=== PATIENT | female | born 1990 | race Caucasian/White ===

== ENCOUNTER 2016-12-03 11:35 | Inpatient (IN) ==
[2016-12-03] MEDS ORDERED: D5 1/2 NS 1,000 ML ONE (12:20)
[2016-12-03] MEDS ORDERED: D5 1/2 NS + KCL 20 MEQ 1,000 ML IV ONE (12:20)
[2016-12-03] MEDS ORDERED: STERILE WATER INJ. INJ ONE (12:37)
[2016-12-03] MEDS ORDERED: GEODON IM ONE (12:37)
--- NOTE | 2016-12-03 12:39 | PROVIDER DOCUMENTATION ---
HPI-Psychological Disorder - General Source: patient, family (boyfriend) - History of Present Illness-Psych Onset/Duration: reports: unsure Timing: reports: still present Severity: reports: moderate Situational problems related to:: reports: other (pt's self body image) Psychiatric Complaints: reports: depressed. denies: angry, agitated, altered mental status, anxiety, confused, frustrated, hallucinating, hostile, homicidal thoughts, impaired concentration, ingestion, injury, insomnia, irritability, paranoid, , rapid pulse, restlessness, suicidal ideation, tremor Substance Use: reports: denies Previous psych related hospitalizations?: Yes ([facility] ) Patient arrived by:: private car Similar Symptoms Previously?: Yes Recently seen or treated by another doctor?: No <Elis Soto - Last Filed: 12/03/16 14:15> <David Walls - Last Filed: 12/03/16 15:43> - General Chief Complaint: Low Blood Sugar Stated Complaint: LOW BLOOD SUGAR/EATING DISORDER Time Seen by Provider: 12/03/16 12:13 - History of Present Illness-Psych Nature of Presenting Problem: Pt is 26 y/o F presents to the ED with boyfriend for low blood sugar. Pt states she is anorexic and bulimic. Pt's boyfriend states Pt has not ate in 4 days and refuses to eat or drink anything but water. Pt denies taking daily meds. Pt states she wants to weight 85 lbs because it will make her feel prettier. Pt's boyfriend states the anorexia and bulimia started around August of 2016 after Pt had gallbladder sx. Pt states has not slept in a long time. (Elis Soto) Review of Systems - Adult - REVIEW OF SYSTEMS - ADULT Constitutional: reports: no symptoms reported Eyes: reports: no symptoms reported Ears, Nose, Mouth & Throat: reports: no symptoms reported Cardiovascular: reports: no symptoms reported Respiratory: reports: no symptoms reported Gastrointestinal: reports: nausea, poor appetite, vomiting. denies: abdominal pain, diarrhea Genitourinary: reports: no symptoms reported Musculoskeletal: reports: no symptoms reported Integumentary: reports: no symptoms reported Neurological: reports: no symptoms reported Psychiatric: reports: no symptoms reported Endocrine: reports: no symptoms reported Hematologic/Lymphatic: reports: no symptoms reported Allergic/Immunologic: reports: no symptoms reported All Other Systems: Reviewed and Negative <Elis Soto - Last Filed: 12/03/16 14:15> Past History - Adult - PAST MEDICAL HISTORY-ADULT Review of Records: reports: Nursing Assessment Review, Medications Reviewed, Social history reviewed & non-contributory. Major Childhood Illnesses: reports: denies history Cardiovascular: reports: denies history Respiratory: reports: denies history Gastrointestinal: reports: denies history Obstetrical/Gynecological: reports: denies history Genitourinary: reports: denies history Musculoskeletal: reports: denies history Neurological: reports: denies history Endocrine/Immune: reports: denies history Other Conditions: reports: denies history - PRIOR SURGERIES/PROCEDURES Surgical/Procedure History: reports: reviewed, not pertinent - IMMUNIZATION STATUS Childhood Immunizations: See Nurse Assessment Flu Vaccine: See Nurse Assessment - FAMILY HISTORY Family History: reviewed, not pertinent - SOCIAL HISTORY Smoking: denies Substance Use: denies Living Situation: family <Elis Soto - Last Filed: 12/03/16 14:15> Physical Exam-Psych Focus - Physical Exam-Psych Initial Vital Signs Reviewed: Yes Appearance: appropriate appearance, appropriate insight, neat, no apparent distress, no memory impairment Neurological: alert, normal mood/affect, calm, rolled materials worker II-XII nml as tested, oriented x 3 Behavior/Eye Contact/Speech: cooperative, good eye contact, normal speech Thoughts/Hallucinations: normal thought pattern, no apparent hallucination HENMT: normocephalic/atraumatic, normal ENT inspection, TMs normal, pharynx normal, other (dry mucous membranes) Neck: non-tender, full range of motion, supple, normal inspection Respiratory: chest non-tender, lungs clear, normal breath sounds, no pleuratic chest pain, no respiratory distress, no accessory muscle use Cardiovascular: normal peripheral pulses, regular rate, rhythm, no edema, no gallop, no JVD, no murmur Abdominal Exam: normal bowel sounds, non tender, soft, no organomegaly, no pulsatile mass Lymphatic: no adenopathy Back Exam: normal inspection, no CVA tenderness, no vertebral tenderness Extremity: normal range of motion, non-tender, normal inspection, no pedal edema , no calf tenderness, normal capillary refill Integumentary: normal color, normal turgor, warm/dry <Charles,Elis - Last Filed: 12/03/16 14:15> Progress - XRAY 1 XRAY: Bilateral XRAY Study: Abdomen Impression: Normal XRAY Interpretation: negative exam <Elis Soto - Last Filed: 12/03/16 14:15> - REASSESSMENT Reassessment #1 Time Reassessed: 15:42 Status: unchanged (discussed admission to special unit, but will admit for tube feedings until unit found) <David Walls - Last Filed: 12/03/16 15:43> - PLAN OF CARE/RESULTS Progress/Plan/Lab Results: Orders Category Date Time Status ABDOMEN FLAT/UPRIGHT [RAD] Stat Exams 12/03/16 12:37 Ordered ACETAMINOPHEN [TDM] Stat Lab 12/03/16 12:35 Ordered ALCOHOL BLOOD Stat Lab 12/03/16 12:35 Ordered CBC WITH ELECTRONIC DIFF [HEME] Stat Lab 12/03/16 12:35 Ordered CMP [COMPREHENSIVE METABOLIC PANEL] [CHEM] Stat Lab 12/03/16 12:35 Ordered LIPASE [CHEM] Stat Lab 12/03/16 12:35 Ordered PT REQUESTED UDS Stat Lab 12/03/16 12:36 Ordered SALICYLATES [TDM] Stat Lab 12/03/16 12:35 Ordered UA NIMS W/REFLEX CULT [URINALYSIS] Stat Lab 12/03/16 12:16 Uncollected D5 1/2 Ns + KCl 20 Meq 1,000 ml Med 12/03/16 12:20 Active IV 125 mls/hr Dextrose 5%-0.45% NaCl Inj [D5 1/2 Ns] 1,000 ml Med 12/03/16 12:20 Discontinued .ROUTE As Directed Water, Sterile Inj [Sterile Water Inj] Med 12/03/16 12:37 Discontinued 1.2 ml INJ NOW ONE Ziprasidone [Geodon] Med 12/03/16 12:37 Discontinued 10 mg IM NOW ONE Vital Signs - 24 hr 12/03/16 12:06 Temperature 98.2 F Pulse Rate 76 Respiratory 16 Rate Blood Pressure 110/75 O2 Sat by Pulse 100 Oximetry Laboratory Tests 12/03/16 12/03/16 12:10 12:24 WBC 5.10 RBC 5.28 Hgb 15.2 Hct 46.3 MCV 87.7 MCH 28.8 MCHC 32.8 L RDW Std Deviation 14.1 Plt Count 257 MPV 11.0 H Neut % (Auto) 43.4 Lymph % (Auto) 47.5 [place] % (Auto) 6.9 Eos % (Auto) 1.4 Baso % (Auto) 0.8 Neut # (Auto) 2.22 Lymph # (Auto) 2.42 [place] # (Auto) 0.35 Eos # (Auto) 0.07 Baso # (Auto) 0.04 POC Glucose 40 L Laboratory Tests 12/03/16 12/03/16 12/03/16 12:10 12:24 12:24 WBC 5.10 RBC 5.28 Hgb 15.2 Hct 46.3 MCV 87.7 MCH 28.8 MCHC 32.8 L RDW Std Deviation 14.1 Plt Count 257 MPV 11.0 H Neut % (Auto) 43.4 Lymph % (Auto) 47.5 [place] % (Auto) 6.9 Eos % (Auto) 1.4 Baso % (Auto) 0.8 Neut # (Auto) 2.22 Lymph # (Auto) 2.42 [place] # (Auto) 0.35 Eos # (Auto) 0.07 Baso # (Auto) 0.04 Sodium 138 Potassium 4.3 Chloride 92 L Carbon Dioxide 20 L Anion Gap 26 BUN 8 Creatinine 0.9 Estimated GFR/1.73 m2 > 60 BUN/Creatinine Ratio 9 Glucose 52 L POC Glucose 40 L Calculated Osmolality 271 Calcium 10.3 H Total Bilirubin 0.88 AST 17 ALT 10 Alkaline Phosphatase 53 Total Protein 7.5 Albumin 5.4 H Globulin 2.1 Albumin/Globulin Ratio 2.6 Lipase 19 TSH Urine Source Urine Color Urine Turbidity Urine pH Ur Specific [place] Urine Protein Ur Glucose (Stick) Ur Ketones (Stick) Urine Blood Urine Nitrite Urine Bilirubin Urobilinogen Dipstick Urine Leukocytes Urine WBC (Auto) Urine RBC (Auto) U Epithel Cells (Auto) Urine Bacteria (Auto) Salicylates < 3.00 L Urine Opiates Screen Ur Oxycodone Screen Ur Methadone, Qual Acetaminophen < 1.2 L Ur Barbiturates Screen Ur Phencyclidine Scrn Ur Amphetamines Screen U Benzodiazepines Scrn Urine Cocaine Screen U Cannabinoids Screen Plasma/Serum Ethyl Alc 12/03/16 12/03/16 12/03/16 12:24 12:24 13:24 WBC RBC Hgb Hct MCV MCH MCHC RDW Std Deviation Plt Count MPV Neut % (Auto) Lymph % (Auto) [place] % (Auto) Eos % (Auto) Baso % (Auto) Neut # (Auto) Lymph # (Auto) [place] # (Auto) Eos # (Auto) Baso # (Auto) Sodium Potassium Chloride Carbon Dioxide Anion Gap BUN Creatinine Estimated GFR/1.73 m2 BUN/Creatinine Ratio Glucose POC Glucose Calculated Osmolality Calcium Total Bilirubin AST ALT Alkaline Phosphatase Total Protein Albumin Globulin Albumin/Globulin Ratio Lipase TSH 3.48 Urine Source CLEAN CATCH Urine Color YELLOW Urine Turbidity CLEAR Urine pH 5.5 Ur Specific [place] 1.005 Urine Protein NEGATIVE Ur Glucose (Stick) NEGATIVE Ur Ketones (Stick) 40 A Urine Blood NEGATIVE Urine Nitrite NEGATIVE Urine Bilirubin NEGATIVE Urobilinogen Dipstick NORMAL Urine Leukocytes NEGATIVE Urine WBC (Auto) <10 Urine RBC (Auto) <10 U Epithel Cells (Auto) <10 Urine Bacteria (Auto) 1+ Salicylates Urine Opiates Screen Ur Oxycodone Screen Ur Methadone, Qual Acetaminophen Ur Barbiturates Screen Ur Phencyclidine Scrn Ur Amphetamines Screen U Benzodiazepines Scrn Urine Cocaine Screen U Cannabinoids Screen Plasma/Serum Ethyl Alc 12/03/16 13:24 WBC RBC Hgb Hct MCV MCH MCHC RDW Std Deviation Plt Count MPV Neut % (Auto) Lymph % (Auto) [place] % (Auto) Eos % (Auto) Baso % (Auto) Neut # (Auto) Lymph # (Auto) [place] # (Auto) Eos # (Auto) Baso # (Auto) Sodium Potassium Chloride Carbon Dioxide Anion Gap BUN Creatinine Estimated GFR/1.73 m2 BUN/Creatinine Ratio Glucose POC Glucose Calculated Osmolality Calcium Total Bilirubin AST ALT Alkaline Phosphatase Total Protein Albumin Globulin Albumin/Globulin Ratio Lipase TSH Urine Source Urine Color Urine Turbidity Urine pH Ur Specific [place] Urine Protein Ur Glucose (Stick) Ur Ketones (Stick) Urine Blood Urine Nitrite Urine Bilirubin Urobilinogen Dipstick Urine Leukocytes Urine WBC (Auto) Urine RBC (Auto) U Epithel Cells (Auto) Urine Bacteria (Auto) Salicylates Urine Opiates Screen NONE DETECTED Ur Oxycodone Screen NONE DETECTED Ur Methadone, Qual NONE DETECTED Acetaminophen Ur Barbiturates Screen NONE DETECTED Ur Phencyclidine Scrn NONE DETECTED Ur Amphetamines Screen NONE DETECTED U Benzodiazepines Scrn NONE DETECTED Urine Cocaine Screen NONE DETECTED U Cannabinoids Screen NONE DETECTED Plasma/Serum Ethyl Alc (Elis Soto) Departure <Elis Soto - Last Filed: 12/03/16 14:15> - Departure Time of Disposition Order: 15:41 Certified Medical Emergency: Emergent <David Walls - Last Filed: 12/03/16 15:43> - Departure DIAGNOSIS: Anorexia nervosa Disposition: ADMITTED INPATIENT 09 Condition: Stable Referrals: None,PCP [Primary Care Provider] - Attestation - Scribe Verification/Attestation Scribe:: Elis Soto Acting as Scribe for:: David Walls Scribe documention review:: This chart was documented by a scribe and accurately reflects the service the provider performed and the decisions made by the provider. <Elis Soto - Last Filed: 12/03/16 14:15> Physician Attestation
[2016-12-03 12:50] LABS: MANUAL DIFF NEEDED? NO
[2016-12-03 12:56] LABS: BASO% 0.8 % (0.0-0.8); EOS# 0.07 X1000 (0.0-0.7); EOS% 1.4 % (0.0-10.0); HEMATOCRIT 46.3 % (37.0-47.0); HEMOGLOBIN 15.2 g/dL (12.0-16.0); LYMPH# 2.42 X1000 (1.2-3.4); LYMPH% 47.5 % (20.5-51.1); MCH 28.8 PG (27-31); MCHC 32.8 g/dL (33-37); MCV 87.7 FL (81-99); MONO# 0.35 X1000 (0.11-0.59); MONO% 6.9 % (1.7-9.3); NEUT% 43.4 % (42.2-75.2); PLT 257 X1000 (130-400); RBC 5.28 XMIL (4.2-5.4)
[2016-12-03 13:26] LABS: ACETAMINOPHEN < 1.2 ug/mL (10-30); AGAP 26; ALBUMIN 5.4 g/dL (3.5-5.0); ALKALINE PHOSPHATASE 53 U/L (32-104); BUN 8 mg/dL (8-22); CALCIUM 10.3 mg/dL (8.8-10.2); CHLORIDE 92 mmol/L (98-107); COSMO 271; GOT 17 U/L (10-30); GPT 10 U/L (10-36); LIPASE 19 U/L (13-60); POTASSIUM 4.3 mmol/L (3.5-5.1); SODIUM 138 mmol/L (136-145); TCO2 20 mmol/L (25-35); TOTAL BILIRUBIN 0.88 mg/dL (0.20-1.00); TOTAL PROTEIN 7.5 g/dL (6.3-8.3)
[2016-12-03 13:33] LABS: URINE CULTURE NEEDED? NO; URINE MICRO REVIEW NEEDED? NO; URINE SOURCE CLEAN CATCH
[2016-12-03 13:40] LABS: BILIRUBIN URINE NEGATIVE (NEGATIVE); BLOOD URINE NEGATIVE (NEGATIVE); COLOR YELLOW; GLUCOSE URINE NEGATIVE (NEGATIVE); LEUKOCYTES URINE NEGATIVE (NEGATIVE); NITRITE URINE NEGATIVE (NEGATIVE); PH URINE 5.5; PROTEIN URINE NEGATIVE (NEGATIVE); SP GRAVITY URINE 1.005; TURBIDITY URINE CLEAR (CLEAR); UR EPITHELIAL CELLS <10 /HPF (<10); URINE BACTERIA 1+ /HPF; URINE RBC <10 /HPF (<10); URINE WBC <10 /HPF (<10); UROBILINOGEN URINE NORMAL (NORMAL)
[2016-12-03 13:46] LABS: UR AMPHETAMINES QUAL NONE DETECTED (NONE DETECT); UR BARBITUATES QUAL NONE DETECTED (NONE DETECT); UR BENZODIAZEPIN QUAL NONE DETECTED (NONE DETECT); UR CANNABINOIDS QUAL NONE DETECTED (NONE DETECT); UR COCAINE QUAL NONE DETECTED (NONE DETECT); UR METHADONE QUAL NONE DETECTED (NONE DETECT); UR OPIATES QUAL NONE DETECTED (NONE DETECT); UR OXYCODONE QUAL NONE DETECTED (NONE DETECT); UR PCP QUAL NONE DETECTED (NONE DETECT)
--- NOTE | 2016-12-03 14:11 | Diag Imaging Result Document ---
PROCEDURE NAME: ABDOMEN FLAT/UPRIGHT - 12/03/2016 ABDOMEN, 2 VIEWS: COMPARISON: None. FINDINGS: There are surgical clips in the right upper quadrant. No bowel obstruction or free air. There is a grossly normal quantity of stool throughout the colon. IMPRESSION: Negative exam.
[2016-12-03] MEDS ORDERED: TYLENOL PO PRN (20:15)
[2016-12-03] MEDS: D5W 1,000 ML IV SCH (20:25)
--- NOTE | 2016-12-03 22:14 | HISTORY AND PHYSICAL ---
CHIEF COMPLAINT: Generalized weakness, hypoglycemia, nausea and vomiting. HISTORY OF PRESENT ILLNESS: A 26-year-old female with an extensive past medical history of psychiatry disorders, including bipolar disorder, depression, anxiety, ADHD, suicidal attempt before x2. Recently discharged from an eating disorder clinic in [place] last month, chest pain, 1-1/2 week hospitalized. She is coming to the emergency department with her for low blood sugar and generalized weakness. It is very important to say that when I started talking with this patient, she told me that is much better if I talk to her boyfriend/ because she will lie about her problems. As per the , this patient has not has not been able to eat for the past 4 days and she has been refusing to eat or drink anything but water and also she has been having on and off eating binge, and after that she just started vomiting. Patient states that she wants to weigh 85 pounds and right now she is 95 pounds. The reason why she is doing this because she feels that she is fat and she wants to be prettier. As per the family member, this probably started around August after a cholecystectomy. This patient will be admitted and we will need the social media content manager's support for this patient. I will consult Psychiatry to see if they can help us with this patient. Probably we will need to call an eating disorder clinic for petroleum terminal plant operator followup. PAST MEDICAL HISTORY: Bipolar disorder, depression and anxiety, ADHD, suicidal attempt x2, eating disorder, anorexia nervosa. SURGICAL HISTORY: in 2015. Two eye surgeries recently. PAST FAMILY HISTORY: Father with bipolar disorder and schizophrenia. Mother with bipolar disorder and OCD. Sister with diabetes and high blood pressure. SOCIAL HISTORY: This patient denies smoking, alcohol drinking or any drug abuse. ALLERGIES: No known allergies. REVIEW OF SYSTEMS: This patient looks cachectic. Decreased muscle mass. The rest of the 14 points of the review of systems were reviewed. All negative except as per HPI. PHYSICAL EXAMINATION: VITALS: Temperature 98.2 degrees, pulse 76, respiratory rate 16, blood pressure 110/75, O2 saturation 100% on room air. HEENT: Head normocephalic. No trauma. PERRLA. NECK: Supple. No JVD. No masses. Central trachea. CHEST: Clear to auscultation. No wheezing. No rales. ABDOMEN: Mild tenderness to palpation in the epigastric area. EXTREMITIES: No edema. No clubbing. No cyanosis. Decreased muscle mass. NEUROLOGICAL: The patient is alert and oriented x3. No focal neurological deficits. LABORATORY: WBC 5.1, hemoglobin 15.2, hematocrit 87.7, platelet 252,000. Sodium 138, potassium 4.3, chloride 92, bicarbonate 20, BUN 8, creatinine 0.9, glucose 52, calcium 10.3, albumin 5.4, TSH 3.4, T4 6.3, negative urinalysis. Negative urine toxicology. ASSESSMENT AND PLAN: 1. Body dysmorphic disorder/anorexia nervosa. I already talked to the patient and we are going to place a nasogastric tube down to the stomach to be able to provide some nutrition, and also I will consult the artificial leather calender operator for this. Tomorrow morning I will consult Psychiatry to see if we can get some help for this patient. Also, I will talk to the social media content manager and case specialist to see if we can find some kind of eating disorder clinic around. 2. Hypoglycemia. I will provide D5 normal saline for this patient and will monitor the blood sugar. 3. Bipolar disorder/depression/anxiety/attention deficit hyperactivity disorder. This patient looks stable at this moment. She is not taking any medications. I will let Psychiatry decide if this patient needs to be on any kind of medication or not. 4. Deep venous thrombosis prophylaxis. I will use heparin subcutaneously. 5. Gastrointestinal prophylaxis. We will go ahead and start pantoprazole intravenously. 6. Physical deconditioning. I will consult Physical Therapy for this patient. 7. Protein calorie malnutrition: Will consult the dietitian MTDGregory
[2016-12-03] MEDS: PROTONIX IV SCH (22:48)
[2016-12-03] MEDS: HEPARIN SUBQ SCH (22:48)
[2016-12-04] MEDS: D5W 1,000 ML IV SCH ×4 (06:20→23:30)
[2016-12-04 11:38] LABS: MANUAL DIFF NEEDED? NO
[2016-12-04] MEDS: HEPARIN SUBQ SCH ×2 (11:41→20:14)
[2016-12-04] MEDS: CENTRUM SILVER PO SCH (11:41)
[2016-12-04 11:44] LABS: BASO% 1.6 % (0.0-0.8); EOS# 0.06 X1000 (0.0-0.7); EOS% 1.9 % (0.0-10.0); HEMATOCRIT 40.7 % (37.0-47.0); HEMOGLOBIN 13.5 g/dL (12.0-16.0); LYMPH# 1.57 X1000 (1.2-3.4); LYMPH% 48.9 % (20.5-51.1); MCH 28.7 PG (27-31); MCHC 33.2 g/dL (33-37); MCV 86.6 FL (81-99); MONO% 9.3 % (1.7-9.3); NEUT% 38.3 % (42.2-75.2); PLT 215 X1000 (130-400)
[2016-12-04] MEDS: XANAX PO SCH ×4 (11:48→22:11)
[2016-12-04 11:58] LABS: AGAP 14; ALBUMIN 4.5 g/dL (3.5-5.0); ALKALINE PHOSPHATASE 44 U/L (32-104); BUN 4 mg/dL (8-22); CALCIUM 9.6 mg/dL (8.8-10.2); CHLORIDE 96 mmol/L (98-107); COSMO 270; GOT 15 U/L (10-30); GPT 8 U/L (10-36); POTASSIUM 3.5 mmol/L (3.5-5.1); SODIUM 137 mmol/L (136-145); TCO2 27 mmol/L (25-35); TOTAL BILIRUBIN 0.71 mg/dL (0.20-1.00); TOTAL PROTEIN 6.7 g/dL (6.3-8.3)
[2016-12-04] MEDS ORDERED: MORPHINE IV ONE (13:38)
[2016-12-04] MEDS: ZOFRAN IV PRN (14:03)
--- NOTE | 2016-12-04 14:12 | Diag Imaging Result Document ---
PROCEDURE NAME: CHEST/ABD TUBE PLACEMENT - 12/04/2016 AP CHEST AND ABDOMEN FOR NG TUBE PLACEMENT: FINDINGS: The NG tube tip is in the body of the stomach. The bowel gas pattern is unchanged in appearance since 12/03/2016. IMPRESSION: NG tube in the stomach.
--- NOTE | 2016-12-04 17:20 | PROGRESS NOTE ---
DATE: 12/04/2016 SUBJECTIVE: This patient feels anxious, she asked me a lot of questions about her treatment and why we are going to place an NG tube, everything was explained and she seems to understand. No family members at the bedside at this moment. I consulted Psychiatry, but they state that they will probably evaluate this patient once we discharge the patient. She seems to understand what the problem is and she knows that everything is related with some decisions that she has made. She knows that she has a problem and she wants to be helped. OBJECTIVE: Vital Signs: Temperature 98.3 degrees, pulse 75, respiratory rate 19. Blood pressure 112/77. Oxygen saturation 99% on room air. HEENT: Head normocephalic. No trauma. PERRLA. Neck: Supple. No JVD. No masses. Central trachea. Chest: Clear to auscultation. No wheezing. No rales. Abdomen: Soft, nontender, nondistended. No hepatosplenomegaly. Mild pain to palpation at the level of the epigastric area. Extremities: No edema. No clubbing. No cyanosis. Neurological: The patient is alert and oriented x3. No focal neurological deficits. Only generalized weakness. General: This patient looks mildly cachectic, decreased muscle mass. LABORATORY: WBC 3.2, hemoglobin 13.5, hematocrit 40.7, platelets 215,000. Sodium 137, potassium 3.5, chloride 96, bicarbonate 27, BUN 4, creatinine 0.8, glucose 90, calcium 9.6. ASSESSMENT AND PLAN: 1. Body dysmorphic disorder/anorexia nervosa. I think talking to the patient about this problem and the nasogastric was placed and I personally talked to the dietitian. Psychiatry will evaluate this patient hopefully after discharge. I will ask for magnesium and phosphorous tomorrow, and I will continue monitoring the complete blood count and complete metabolic panel. manager billing and social worker health services are aware of this case and we will try to find some kind of eating disorder clinic. 2. Protein calorie malnutrition. Again, I already consulted dietitian. We will start with feeding through the nasogastric tube. 3. Hypoglycemia. This patient is getting D5 normal saline for this. I will monitor the blood sugar. 4. Bipolar disorder/depression/anxiety/attention deficit hyperactivity disorder. This patient looks stable at this moment. Maybe a little bit of anxiety. I will start this patient on Xanax, low dose and we will increase as needed. 5. Deep venous thrombosis prophylaxis. I will use heparin subcutaneously. 6. Gastrointestinal prophylaxis. I will continue with pantoprazole intravenously. 7. Physical deconditioning. Physical Therapy has been consulted.
[2016-12-04] MEDS: PROTONIX IV SCH (20:14)
[2016-12-04] MEDS: SODIUM CHLORIDE 0.9% INJ SCH (20:14)
[2016-12-04] MEDS: MBX SOLUTION MT PRN (20:14)
[2016-12-05 07:08] LABS: MANUAL DIFF NEEDED? NO
[2016-12-05 07:26] LABS: BASO% 0.5 % (0.0-0.8); EOS# 0.13 X1000 (0.0-0.7); EOS% 2.3 % (0.0-10.0); HEMATOCRIT 39.4 % (37.0-47.0); HEMOGLOBIN 12.9 g/dL (12.0-16.0); LYMPH# 1.72 X1000 (1.2-3.4); LYMPH% 30.3 % (20.5-51.1); MCH 28.6 PG (27-31); MCHC 32.7 g/dL (33-37); MCV 87.4 FL (81-99); MONO# 0.47 X1000 (0.11-0.59); MONO% 8.3 % (1.7-9.3); MPV 10.9 FL (7.4-10.4); NEUT% 58.6 % (42.2-75.2); PLT 195 X1000 (130-400); RBC 4.51 XMIL (4.2-5.4)
[2016-12-05 07:32] LABS: AGAP 12; BUN 3 mg/dL (8-22); CALCIUM 9.6 mg/dL (8.8-10.2); CHLORIDE 100 mmol/L (98-107); COSMO 277; POTASSIUM 3.4 mmol/L (3.5-5.1); SODIUM 141 mmol/L (136-145); TCO2 29 mmol/L (25-35)
[2016-12-05] MEDS: D5W 1,000 ML IV SCH ×2 (08:02→21:36)
[2016-12-05] MEDS: HEPARIN SUBQ SCH ×2 (10:02→21:34)
[2016-12-05] MEDS: XANAX PO SCH ×3 (10:02→21:34)
[2016-12-05] MEDS: CENTRUM SILVER PO SCH (10:02)
[2016-12-05] MEDS: BENADRYL IV PRN ×2 (16:41→22:35)
--- NOTE | 2016-12-05 17:42 | PROGRESS NOTE ---
DATE: 12/05/2016 SUBJECTIVE: The patient seems to be a little defensive but cooperative. Reports having anorexia for some time, along with bulimia. The patient is willing to eat by mouth. She is also getting tube feeds. She understand that she has problems but she sees herself as fat and she does not want to eat. It gets to the point where food does not taste right for the patient according to her. OBJECTIVE: Vital signs: Blood pressure 102/69, pulse of 79, respiration 14, temperature 97.9. General Appearance: Cachectic white female in no acute distress. HEENT: She has an NG tube in place. Anicteric. Clear conjunctivae. Neck: Supple. No JVD. No bruit. Cardiovascular: S1, S2. Normal rate and rhythm. No murmur, rubs, or gallops. Pulmonary: Clear to auscultation bilaterally. GI: Soft, nontender, nondistended. Normoactive bowel sounds. Musculoskeletal: No clubbing, cyanosis, or edema. LABORATORY: White count 5.67, hemoglobin 12.9, hematocrit of 39.4, platelets of 195,000. Chemistry: Sodium 141, potassium 3.4, chloride 100, bicarb 29, BUN 3, creatinine 0.7, glucose of 82. ASSESSMENT AND PLAN: This is a 26-year-old, anorexic female admitted to the hospital for severe protein calorie deficiency. 1. Severe protein calorie deficiency related to her anorexia and bulimia. The patient is getting tube feeds. Education provided. She needs to eat to sustain life. Furthermore, she needs to eat enough so she can continue to breast-feed her child, who is over 20 months old. We started the patient on a diet today on top of her tube feeds. 2. Anxiety. Will continue Xanax. 3. Deep vein thrombosis prophylaxis. The patient is on heparin. 4. Gastroesophageal reflux disease. Continue Protonix.
[2016-12-05] MEDS ORDERED: CHLORASEPTIC SPRAY MT PRN (21:20)
[2016-12-05] MEDS: SODIUM CHLORIDE 0.9% INJ SCH (21:34)
[2016-12-05] MEDS: PROTONIX IV SCH (21:34)
[2016-12-05] MEDS: MBX SOLUTION MT PRN (21:35)
[2016-12-06] MEDS: D5W 1,000 ML IV SCH ×2 (06:47→22:54)
[2016-12-06 07:10] LABS: AGAP 11; BUN 4 mg/dL (8-22); CALCIUM 9.7 mg/dL (8.8-10.2); CHLORIDE 103 mmol/L (98-107); COSMO 279; MAGNESIUM 2.1 mg/dL (1.5-2.7); POTASSIUM 3.5 mmol/L (3.5-5.1); SODIUM 142 mmol/L (136-145); TCO2 28 mmol/L (25-35)
[2016-12-06] MEDS: XANAX PO SCH ×3 (09:04→21:19)
[2016-12-06] MEDS: CENTRUM SILVER PO SCH (09:04)
[2016-12-06] MEDS: SODIUM CHLORIDE 0.9% INJ SCH ×3 (09:04→21:19)
[2016-12-06] MEDS: ZOFRAN IV PRN ×2 (09:04→17:38)
[2016-12-06] MEDS: HEPARIN SUBQ SCH ×2 (09:04→21:18)
[2016-12-06] MEDS: BENADRYL IV PRN ×2 (11:19→22:54)
--- NOTE | 2016-12-06 14:56 | PROGRESS NOTE ---
DATE: 12/06/2016 SUBJECTIVE: The patient is doing about the same. She still thinks that she is overweight, even though she is very cachectic. OBJECTIVE: Vital signs: Blood pressure 99/66, pulse of 87, respirations 14, temperature of 97.7 degrees, satting 100%. General appearance: Thin, white female in no acute distress. HEENT: Has NG tube in place. Tube feeds going. Anicteric sclerae, clear conjunctivae. Neck: Supple. No JVD. No bruit. Cardiovascular: S1, S2. Normal rate and rhythm. No murmur, rubs, or gallops. Pulmonary: Clear to auscultation bilaterally. GI: Soft, nontender, nondistended. Normoactive bowel sounds. Musculoskeletal: No clubbing, cyanosis or edema. LABORATORY: Sodium 142, potassium 3.5, chloride 103, bicarbonate 28, BUN 4, creatinine 0.7, blood sugar ranging from 86 to 140. ASSESSMENT/PLAN: A 26-year-old with anorexia and severely malnourished. 1. Severe protein calorie deficient. The patient has issue with bulimia and anorexia. We will continue with tube feeds. She is eating very little. We tried to re-consult psych, and they do not have any bed at this point. We also give her the information at the [facility] up in [place] where she had to go online and register and put in her information. grain i farmworker has been helping the patient. She thinks that she is going to go to [facility] before she goes to the Anorexia Clinic up in [place]. [facility] does not have any bed for her at this time, but we will continue to check with [facility] and we will get the patient to the clinic as soon as she has been accepted.
[2016-12-06] MEDS: MBX SOLUTION MT PRN (16:28)
[2016-12-06] MEDS: PROTONIX IV SCH (21:19)
[2016-12-07] MEDS: D5W 1,000 ML IV SCH ×4 (04:08→23:07)
[2016-12-07] MEDS: BENADRYL IV PRN ×3 (05:18→20:44)
[2016-12-07 07:45] LABS: AGAP 12; ALBUMIN 3.8 g/dL (3.5-5.0); ALKALINE PHOSPHATASE 53 U/L (32-104); BUN 4 mg/dL (8-22); CALCIUM 9.4 mg/dL (8.8-10.2); CHLORIDE 101 mmol/L (98-107); COSMO 277; GOT 11 U/L (10-30); GPT 7 U/L (10-36); MAGNESIUM 2.2 mg/dL (1.5-2.7); POTASSIUM 3.6 mmol/L (3.5-5.1); SODIUM 142 mmol/L (136-145); TCO2 29 mmol/L (25-35); TOTAL PROTEIN 5.9 g/dL (6.3-8.3)
[2016-12-07] MEDS: ZOFRAN IV PRN (08:50)
[2016-12-07] MEDS: SODIUM CHLORIDE 0.9% INJ SCH ×2 (08:51→20:45)
[2016-12-07] MEDS: HEPARIN SUBQ SCH ×2 (09:01→20:45)
[2016-12-07] MEDS: XANAX PO SCH ×3 (09:02→20:44)
[2016-12-07] MEDS: CENTRUM SILVER PO SCH (09:02)
--- NOTE | 2016-12-07 13:40 | PROGRESS NOTE ---
DATE: 12/07/2016 SUBJECTIVE: The patient is feeling a little better today. She denies having any fever or chills. Denies having any nausea, vomiting, or diarrhea. She is still very leery about her tube feed because she is afraid that she may get fat. Vital signs: Blood pressure 91/49, pulse of 72, respiration 18, temperature 98 degrees, sat of 98% on room air. General appearance: Thin, cachectic, white female in no acute distress. HEENT: Anicteric. Clear conjunctivae. Neck: Supple. No JVD. No bruits. Cardiovascular: S1, S2. Normal rate and rhythm. No murmur, rubs, or gallops. Pulmonary: Clear to auscultation bilaterally. GI: Soft, nontender, nondistended. Normoactive bowel sounds. Musculoskeletal: No clubbing, cyanosis, or edema. LABORATORY: Her white count 5.67. Her sodium 142, potassium of 3.6, chloride 101, bicarb 29, BUN 4, creatinine 0.9. Glucose of 51, she is asymptomatic. ASSESSMENT AND PLAN: This is a 26-year-old with eating disorder admitted for severe protein calorie deficiency. 1. Severe protein calorie deficiency. Probably secondary to her bulimia and anorexia. [facility] was consulted but they do not have the bed. 2. Depression, thinks that she is overweight. Encourage p.o. intake. She is not able to go to the anorexia and bulimia clinic up in [place] because they do not have enough money to go. We will continue with tube feeds. Encourage p.o. intake. We will re-consult [facility] since the patient refused to talk to them yesterday. We will get her more help.
[2016-12-07] MEDS: MBX SOLUTION MT PRN (18:32)
[2016-12-07] MEDS: PROTONIX IV SCH (20:45)
[2016-12-08 07:13] LABS: MAGNESIUM 2.3 mg/dL (1.5-2.7)
[2016-12-08] MEDS: BENADRYL IV PRN ×2 (09:02→21:03)
[2016-12-08] MEDS: HEPARIN SUBQ SCH ×2 (09:02→21:06)
[2016-12-08] MEDS: CENTRUM SILVER PO SCH (09:02)
[2016-12-08] MEDS: D5W 1,000 ML IV SCH ×2 (10:15→21:03)
[2016-12-08] MEDS: XANAX PO SCH ×3 (10:15→21:13)
[2016-12-08] MEDS: ZOFRAN IV PRN (17:45)
--- NOTE | 2016-12-08 18:42 | PROGRESS NOTE ---
DATE: 12/08/2016 SUBJECTIVE: The patient decided not to go home after she was talking to her family member and she is willing to get help and willing to eat. Put the patient on a regular diet. OBJECTIVE: Vital signs: Blood pressure 129/78, pulse 102 respirations 16, temperature 97.0 degrees. Sat 91%. General Appearance: Thin, cachectic, white female in no acute distress. HEENT: Anicteric. Clear conjunctivae. Neck: Supple. No JVD. No bruit. Cardiovascular: S1, S2 normal. Normal rate and rhythm. No murmur, rubs, or gallops. Pulmonary: Clear to auscultation bilaterally. GI: Soft, nontender, nondistended. Normoactive bowel sounds. Musculoskeletal: No clubbing, cyanosis, or edema. ASSESSMENT AND PLAN: 26-year-old, white female admitted to the hospital for anorexia. Anorexia. The patient has tube feeds going. Still has trouble realizing that she is not overweight. However she wanted to stay, wanted to get help and wanted to eat more. We have advanced her diet and we will monitor the patient in house for a few more days. Once we get her medications situated for her depression and bipolar we will send the patient home once she eats more than 50% of her food.
[2016-12-08] MEDS: MBX SOLUTION MT PRN ×2 (18:46→21:10)
--- NOTE | 2016-12-08 19:21 | DISCHARGE SUMMARY ---
ADMISSION DATE: 12/03/2016 DISCHARGE DATE: 12/08/2016 DIAGNOSES: 1. Anorexia. 2. Hypoglycemia, improved. 3. Bipolar disorder. 4. Depression. DISCHARGE MEDICATIONS: 1. Lexapro 20 mg p.o. daily. 2. Xanax 0.25 mg 3 times a day. 3. She can resume her Linzess. CONSULTATIONS: Fred Morataya was consulted, and she does not need to go to inpatient psych. DIAGNOSTIC DATA: At discharge, white count was 5.67, hemoglobin 12.9, hematocrit 39.4, platelets of 195. Chemistry showed sodium 142, potassium 3.6, chloride 101, bicarb 29, BUN of 4, creatinine 0.9, glucose 51, POC was about 97. HOSPITAL COURSE: The patient is a 26-year-old white female with history of anorexia and bulimia, admitted to our hospital for hypoglycemia and failure to thrive with severe protein calorie deficiency. The patient has a long history of psychiatric illness, bipolar, and has developed anorexia most of her life but getting worse within the past several months. She is constantly worrying that she may be overweight and did not want to take in adequately. We put down an NG tube and started her on tube feeds, but she was constantly afraid that she may get too much of it. Education was provided to the patient regarding her anorexia, and were have referred her to several places, but they would not take her because of the financial situation. The patient has issue with eating, she is afraid that she may gain weight if she eats, although she is anorexic, but she thinks that she is overweight. I had a long discussion with her boyfriend who she has a daughter with and informed him that unless she wants to go get help, there is nothing we can do about it as long as she is awake, alert and oriented and able to make decisions for herself. Encouraged to seek more psychiatric help, but our psychiatry here is not equipped to deal with anorexia. We have referred her to several places in [place] and up in [place], but she was not qualified. From our standpoint, the patient can go. She adamantly I feel that she needs antidepressant medications and mood stabilizer, and that will certainly help her with her anorexia, and hopefully she will be able to seek more psychiatric help as an outpatient. PHYSICAL EXAMINATION: VITAL SIGNS: At discharge, her vital signs were blood pressure of 105/70, pulse 90, respirations 16, temperature 97.9, saturation 98% on room air. GENERAL: A cachectic white female in no acute distress. Depressed mood but not suicidal. HEENT: Anicteric sclerae. Clear conjunctivae. NECK: Supple. No JVD. No bruit. CARDIOVASCULAR: S1 and S2. Normal rate and rhythm. No murmurs, rubs or gallops. PULMONARY: Clear to auscultation bilaterally. GASTROINTESTINAL: Soft, nontender and nondistended. Normoactive bowel sounds. MUSCULOSKELETAL: No cyanosis, clubbing or edema. PLAN: We will discharge the patient home. CONDITION: Stable and improved. ACTIVITY: As tolerated. FOLLOWUP: The patient is to follow with outpatient psych.
[2016-12-08] MEDS ORDERED: LEXAPRO PO SCH (21:00)
[2016-12-08] MEDS: PROTONIX IV SCH (21:06)
[2016-12-08] MEDS: SODIUM CHLORIDE 0.9% INJ SCH (21:06)
[2016-12-08 22:36] VITALS: BP 92/64
--- NOTE | 2016-12-09 14:18 | PROGRESS NOTE ---
DATE: 12/09/2016 SUBJECTIVE: The patient is feeling much better today. She is feeling much more perky. She ate well today. We pulled NG tube with no issue. OBJECTIVE: Vital Signs: Blood pressure 114/74, pulse of 85, respirations 14, temperature 98.3 degrees, O2 saturation of 99% in room air. General Appearance: Thin white female in no acute distress. HEENT: Anicteric. Clear conjunctivae. Neck: Supple. No JVD. No bruit. Cardiovascular: Normal S1 and S2. Normal rate and rhythm. No murmur, rubs, or gallops. Pulmonary: Clear to auscultation bilaterally. Gastrointestinal: Soft, nontender, nondistended. Normoactive bowel sounds. Musculoskeletal: No clubbing, cyanosis, or edema. ASSESSMENT AND PLAN: This is a 26-year-old white female, admitted to the hospital for anorexia. The patient is doing better with her eating. We started the patient on Lexapro for depression and Xanax p.r.n. for her bipolar. Encouraged p.o. intake. Pulled NG tube today. The patient is stable to go, from my standpoint.
--- NOTE | 2016-12-11 06:04 | DISCHARGE SUMMARY ---
ADMISSION DATE: 12/03/2016 DISCHARGE DATE: 12/09/2016 ADDENDUM REPORT Diagnoses still the same. The patient was held back because she decided that she wanted to stay. She wanted to get help. Her mother came down from [place] and picked her up on the December, and we discharged the patient home on that day. No acute event reported by the overnight staff. The patient has a discharge summary on the 2016 and this is an addendum to the discharge summary.
== END 2016-12-09 12:15 | disposition home or self-care (01) ==
LOC: ED 11:35 → EDIPHOLD 16:25 → 3N 12-04 07:44 → DIRADM 12-09 12:00
PROVIDERS: ATTEND Internal Medicine